=== PATIENT | female | born 1985 | race African-American/Black ===

== ENCOUNTER 2023-09-10 12:34 | Emergency (ER) | payer OTHER ==
[~2023-09-10] VITALS: Ht 165.1 cm; Wt 93.2 kg
[~2023-09-10 12:34] MED LIST: CEPHALEXIN500 M1 PO
[2023-09-10 12:49] VITALS: TEMP 98.5
[2023-09-10] MEDS ORDERED: Ketorolac 30 MG/ML VIAL IM ONE (13:45)
[2023-09-10] MEDS ORDERED: IMITREX100 MG PO (15:04)
[2023-09-10 15:09] VITALS: BP 113/95; PULSE 69
== END 2023-09-10 15:11 | disposition home or self-care (01) ==
LOC: COL.ER 12:34
DX: R51.9 Headache, unspecified (principal); Z86.69 Personal history of other diseases of the nervous system and sense organs
CPT/HCPCS: J0780; J1885